=== PATIENT | female | born 1960 | race Caucasian/White ===

== ENCOUNTER → 2016-09-07 | Outpatient (CLI) | payer OTHER ==
[~2016-09-07] VITALS: Ht 165.1 cm; Wt 65.8 kg
[~2016-09-07] MED LIST: ALENDRONATE SOD70 MG PO; CALCIUM 500 +1 EAC5 PO; COQ1050 MG PO; MAGNESIUM400 M1 PO; PROBIOTIC1 EAC1 PO; TYSABRI300 MG/15 IV; UNICOMPLEX M TA1 TA1 PO; VITAMIN D3400 UNIT PO
--- NOTE | ~2016-09-07 | HPC ---
[facility] [place] [address] PAIN MANAGEMENT CONSULTATION Name: ELIZA VIZCARRA Kierra Room #: [facility] ALAYNA Waldron#: [id number] Admission: 09/07/16 Attend Phys: Nik Jiménez DO Discharge: Date of : 60 Report #: [id number] THIS REPORT FOR: //name// CC: FAM unknown Kareem Jiménez The patient is a 55-year-old, female seen in consultation at the request of Dr. Franco for evaluation of pain, low back, left lateral leg to foot. The patient notes pain began acutely in July of 2015. Over the past year, she was treated just conservatively with ongoing symptoms. She has comorbidity of multiple sclerosis, diagnosed about 2007. She was initially concerned that the paresthesia and weakness was simply exacerbation of her MS. Though recent diagnostic study did note broad-based disk bulge with left paracentral extrusion at L5-S1. She was referred to our clinic for consideration for an epidural injection, prior to considering L5-S1 diskectomy. The patient notes symptoms range anywhere from 4-10 on a 0-10 visual analog scale, describing aching, pulling, gnawing, intermittent pain, exacerbated with sitting and lying down, some relief when she is standing. Denies bowel or bladder continence changes. REVIEW OF SYSTEMS: Complete review of systems was attached to the chart, and gone over with the patient. She is , does not smoke or drink alcohol to excess. A 12-point review of systems notes prior history of multiple sclerosis, diagnosed in 2007, currently treated with Tysabri infusions. Recently diagnosed with osteopenia and started on Fosamax. PAST SURGICAL HISTORY: Include tonsillectomy, D and C. 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 She is not seeking disability income. Pain impact score is fairly low, averaging about 16/70. PHYSICAL EXAMINATION: GENERAL: Reveals a 5 feet 5 inches, 145 pounds female in modest distress. BMI is 24.1 kilograms per meter squared. VITAL SIGNS: Blood pressure is 114/74, pulse is 66, respirations are 16. NEUROLOGIC: Cranial nerves 2-12 are grossly intact. HEENT: Pupils are equal, round, and reactive to light and accommodation. Extraocular muscles are intact. There is trace nystagmus with lateral gaze deviation. NECK: Thyroid is unremarkable. Cervical range of motion is full. Upper extremity strength is preserved. HEART: Regular rhythmical without murmur. LUNGS: Clear to auscultation. [facility] [address] [place] [address] PAIN MANAGEMENT CONSULTATION Name: ELIZA VIZCARRA Room #: [facility]#: [id number] Admission: 09/07/16 Attend Phys: Nik Jiménez DO Discharge: Date of : 60 Report #: [id number] ABDOMEN: Unremarkable. EXTREMITIES: Rises from the chair using armrest. Gait is generally tandem, though she has a little hint of antalgic gait on the left leg and little diminution in strength, trying to walk on her left toe. Objectively, plantar flexion on the left is diminished compared to the right. Straight leg raise is positive at 30 degrees in the left. Achilles reflexes are absent on the left, 1/4 on the right. Patellar reflexes are 1/4 and symmetric. DIAGNOSTIC STUDIES: MRI as noted in chief complaint study from 04/10/2016, it was compared to a prior study from 09/08/2015. Results note L5-S1 to have a small paracentral subarticular disk extrusion, somewhat improved from prior exam, persistent mild to moderate left neural foraminal stenosis, slight mass effect on the descending left S1 nerve root, mild progressive degeneration endplate edema. Mild reactive enlargement and inflammation of the exiting left S1 nerve root. ASSESSMENT: Symptomatic lumbar radiculopathy. The patient's only comorbidity is multiple sclerosis. RECOMMENDATIONS: After discussion with the patient today, we have elected to proceed with epidural injection under fluoroscopy at L5-S1. Follow up in 3 weeks for reevaluation. Thank you for allowing me to participate in the patient's care. PROCEDURE: Lumbar epidural injection under fluoroscopy. INDICATIONS: Symptomatic lumbar radiculopathy at L5-S1. (Reference number for authorization for injection is [id number]). PROCEDURE NOTE: Lumbar epidural injection under fluoroscopy. DESCRIPTION OF PROCEDURE: After both written and informed consent to include risk of spinal cord damage, increased pain, weakness and dural puncture, the patient was taken to the fluoroscopy suite, placed in the prone position. After sterile prep and drape, a skin wheal with lidocaine was raised. A 22-gauge epidural Tuohy needle was inserted in the midline at L5-S1 with good loss to resistance. Negative aspiration for cerebrospinal fluid or blood was noted. Then 1 mL of Omnipaque under biplanar fluoroscopy showed good spread within the epidural space. This was followed with 80 mg of triamcinolone plus 1 mL of 1.5% preservative-free Xylocaine, 0.5 mL Xylocaine was then injected to flush the [facility] [address] [place] [address] PAIN MANAGEMENT CONSULTATION Name: ELIZA VIZCARRA Room #: [facility] ALAYNA PopeSaba#: [id number] Admission: 09/07/16 Attend Phys: Nik Jiménez DO Discharge: Date of : 60 Report #: [id number] needle; it was removed. The patient was monitored for an appropriate period of time and discharged in good and stable condition. <ELECTRONICALLY SIGNED> By: Nik Jiménez DO 09/08/16 0904 [id number] Nik Jiménez DO /nt
[2016-09-07 09:59] VITALS: BP 114/74
== END | disposition home or self-care (01) ==
LOC: PAIN 07:07
DX: M54.16 Radiculopathy, lumbar region (principal); G35 Multiple sclerosis; Z87.891 Personal history of nicotine dependence; Z90.89 Acquired absence of other organs